=== PATIENT | female | born 1965 | race Caucasian/White ===

== ENCOUNTER 2018-01-03 09:49 | Outpatient (CLI) | payer OTHER | END 2018-01-03 09:50 | disposition home or self-care (01) | LOC: BICMAMMO 09:49 | PROVIDERS: ATTEND Internal Medicine | DX: Z12.31 Encounter for screening mammogram for malignant neoplasm of breast (principal); N63.20 Unspecified lump in the left breast, unspecified quadrant | CPT/HCPCS: 77063; 77067 ==

== ENCOUNTER 2018-01-21 14:27 | Outpatient (CLI) | payer OTHER | END 2018-01-21 14:28 | disposition home or self-care (01) | LOC: BICMAMMO 14:27 | PROVIDERS: ATTEND Internal Medicine | DX: N63.20 Unspecified lump in the left breast, unspecified quadrant (principal) | CPT/HCPCS: G0279 ==

== ENCOUNTER 2018-07-29 14:11 | Outpatient (CLI) | payer OTHER ==
--- NOTE | 2018-07-29 16:34 | ULT ---
LEFT BREAST ULTRASOUND LIMITED: HISTORY: A 53-year-old female who presents for a 6-month follow-up evaluation of a somewhat lobulated cyst in the left breast. In the left breast, at the 1 o'clock position, approximately 2 cm from the nipple, on today's study, there is a circumscribed, oval, 0.3 x 0.4 cm hypodensity. This is in the general region of the 0.4 x 0.7 cm in diameter, somewhat complicated appearing cyst seen on the prior study of 01/21/2018. I am not for certain that this represents the exact same lesion, since the patient did have several other small, circumscribed, nodular foci on mammogram, but the large mass seen on the prior mammogram stud y is no longer evident on today's mammogram study. FINDINGS: BI-RADS category 3-Probably benign findings. Six-month follow-up bilateral diagnostic mammogram and left breast ultrasound is recommended for further assessment and to continue to document expected sta bility. POS: OFF
== END 2018-07-29 14:12 | disposition home or self-care (01) ==
LOC: BICMAMMO 14:11
PROVIDERS: ATTEND Internal Medicine
DX: R92.8 Other abnormal and inconclusive findings on diagnostic imaging of breast (principal); N64.89 Other specified disorders of breast
CPT/HCPCS: G0279

== ENCOUNTER 2019-02-10 09:10 | Outpatient (CLI) | payer OTHER ==
--- NOTE | 2019-02-10 10:14 | MMO ---
Bilateral MAMMO Bilat Diag [facility]. CLINICAL HISTORY: Patient is 53 years old and is seen for diagnostic exam. The patient has no family history of breast cancer. The patient has no personal history of cancer. The patient has a history of right Cyst Aspiration in 1999 - negative. VIEWS: The views performed were: bilateral craniocaudal with tomosynthesis; bilateral mediolateral oblique with tomosynthesis; and bilateral mediolateral. FILMS COMPARED: The present examination has been compared to prior imaging studies performed at [facility] on 06/28/2000, 12/27/2000, 01/03/2002, 01/29/2004, 01/05/2005, 01/03/2006, 01/03/2007, 01/06/2009, 01/04/2011, 01/04/2012, 01/01/2013, 01/01/2014, 01/06/2016, 01/04/2017, 01/03/2018, 01/21/2018, 07/29/2018 and 02/10/2019. MAMMOGRAM FINDINGS: There are scattered fibroglandular densities. There are benign appearing calcifications seen in both breasts. There are no suspicious masses, suspicious calcifications, or new areas of architectural distortion. IMPRESSION: THERE IS NO MAMMOGRAPHIC EVIDENCE OF MALIGNANCY. A ROUTINE FOLLOW-UP MAMMOGRAM IN 1 YEAR IS RECOMMENDED. THE RESULTS OF THIS EXAM WERE SENT TO THE PATIENT. ACR BI-RADS Category 2 - Benign finding MAMMOGRAPHY NOTE: 1. A negative mammogram report should not delay a biopsy if a dominant of clinically suspicious mass is present. 2. Approximately 10% to 15% of breast cancers are not detected by mammography. 3. Adenosis and dense breasts may obscure an underlying neoplasm.
--- NOTE | 2019-02-10 10:26 | ULT ---
LEFT BREAST ULTRASOUND: COMPARISON: 07/29/2018, 01/21/2018. HISTORY: Focal asymmetric of the 1 o'clock position of the left breast on prior ultrasound and mammography. T his was smaller on the prior ultrasound and likely represents a cyst. TECHNIQUE: Multiplanar, powell scale, and color Doppler images were obtained in a left breast ultrasound. FINDINGS: At the 1 o'clock position of the left breast approximately 2 cm from the nipple, there is an anechoic cyst measuring 4 mm in greatest dimension. This is stable compared to the prior exam. No suspiciou s solid mass or shadowing is seen. IMPRESSION: BIRADS category 2 - benign findings. Annual screening mammography is recommended. POS: [facility]
== END 2019-02-10 09:11 | disposition home or self-care (01) ==
LOC: BICMAMMO 09:10
PROVIDERS: ATTEND Internal Medicine
DX: N60.02 Solitary cyst of left breast (principal); R92.8 Other abnormal and inconclusive findings on diagnostic imaging of breast
CPT/HCPCS: 77066; G0279